=== PATIENT | male | born 1975 | race Caucasian/White ===

== ENCOUNTER 2018-01-20 15:04 | Emergency (ER) | payer OTHER ==
[~2018-01-20] VITALS: Ht 185.4 cm; Wt 110.1 kg
[2018-01-20 17:15] VITALS: BP 153/107
== END 2018-01-20 18:14 | disposition home or self-care (01) ==
LOC: EME 15:04
DX: R51 Headache (principal); F41.9 Anxiety disorder, unspecified; F17.200 Nicotine dependence, unspecified, uncomplicated
CPT/HCPCS: 99281; 99285; J0780